=== PATIENT | female | born 1985 | race Caucasian/White ===

== ENCOUNTER 2019-03-04 23:04 | Emergency (ER) | payer OTHER ==
[~2019-03-04] VITALS: Ht 160 cm; Wt 59.0 kg
[2019-03-04 23:10] VITALS: BP_SYST 148
--- NOTE | 2019-03-04 23:10 | NUR ---
Patient triaged and placed in waiting room. VSS and patient appears in no acute distress at this time. Accompanied by FAMILY MEMBER, awaiting available bed, and MD notified of need for MSE.
[2019-03-04 23:38] LABS: BASOPHILS % (AUTO) 0.7 % (0.0-2.0); EOSINOPHILS # (AUTO) 0.6 K/uL (0.0-0.4); EOSINOPHILS % (AUTO) 8.3 % (0.0-4.0); HEMATOCRIT 34.3 % (36-48); HEMOGLOBIN 10.9 g/dL (12.0-16.0); LYMPHOCYTES # (AUTO) 2.6 K/uL (1.0-5.5); LYMPHOCYTES % (AUTO) 39.5 % (20.5-51.5); MEAN CORPUSCULAR HEMOGLOBIN 22 pg (27-31); MEAN CORPUSCULAR HGB CONC 32 % (32-36); MEAN CORPUSCULAR VOLUME 70 fL (79.0-98.0); MONOCYTES # (AUTO) 0.4 K/uL (0.0-1.0); NEUTROPHILS % (AUTO) 45.5 % (40.0-70.0); PLATELET COUNT (AUTO) 298 K/uL (130-430); WHITE BLOOD COUNT (AUTO) 6.7 K/uL (4.8-10.8)
[2019-03-04 23:48] LABS: CALCIUM 8.7 mg/dL (8.4-11.0); CREATININE 0.84 mg/dL (0.55-1.30)
--- NOTE | 2019-03-04 23:58 | NUR ---
Patient to ER bed 7 to gown for evaluation. Side rails up. Report given to JOANNE SANABRIA.
--- NOTE | 2019-03-05 00:10 | NUR ---
Pt C/O of heavy menstrual bleeding and cramps since yesterday. Pt denies any N/V/D, dysuria, fever or any other symptoms at this time. Urine pregancy is negative, will continue to monitor.
--- NOTE | 2019-03-05 00:23 | NUR ---
ER Dr. Dawkins at bedside examining patient.
[2019-03-05 00:34] VITALS: BP_SYST 148
--- NOTE | 2019-03-05 00:36 | NUR ---
Patient given written and verbal discharge instructions and verbalizes understanding. ER MD discussed with patient the results and treatment provided. Patient in stable condition. ID arm band removed. Rx of Provera, Motrin, Zofran given. Patient educated on pain management and to follow up with PMD. Pain Scale 0/10. Opportunity for questions provided and answered. Medication side effect fact sheet provided.
== END 2019-03-05 00:36 | disposition home or self-care (01) ==
LOC: SED 23:04
DX: N93.8 Other specified abnormal uterine and vaginal bleeding (principal); R03.0 Elevated blood-pressure reading, without diagnosis of hypertension
CPT/HCPCS: 36415; 80048; 81002; 81025; 85025; 99283